=== PATIENT | female | born 1975 | race Hispanic/Latino ===

== ENCOUNTER 2017-09-14 12:05 | Outpatient (CLI) | payer BC | END 2017-09-14 12:06 | disposition home or self-care (01) | LOC: BICMAMMO 12:05 | PROVIDERS: ATTEND Physician Assistant | DX: N64.52 Nipple discharge (principal); R92.1 Mammographic calcification found on diagnostic imaging of breast | CPT/HCPCS: 77066; G0279 ==

== ENCOUNTER 2021-06-28 14:15 | Outpatient (CLI) | payer BC | END 2021-06-28 14:16 | disposition home or self-care (01) | LOC: ULT 14:15 | PROVIDERS: ATTEND Family Medicine | DX: R01.1 Cardiac murmur, unspecified (principal); I08.1 Rheumatic disorders of both mitral and tricuspid valves | CPT/HCPCS: 93306 ==

== ENCOUNTER 2021-07-04 14:28 | Outpatient (CLI) | payer BC | END 2021-07-04 14:29 | disposition home or self-care (01) | LOC: BICMAMMO 14:28 | PROVIDERS: ATTEND Family Medicine | DX: Z12.31 Encounter for screening mammogram for malignant neoplasm of breast (principal) | CPT/HCPCS: 77063; 77067 ==

== ENCOUNTER 2021-12-18 14:02 | Outpatient (CLI) | payer BC ==
[~2021-12-18 14:02] MED LIST: Magnevist 469MG/ML 20 ML VIAL ONE
== END 2021-12-18 14:03 | disposition home or self-care (01) ==
LOC: MRI 14:02
PROVIDERS: ATTEND Psychiatry & Neurology Neurology
DX: D35.2 Benign neoplasm of pituitary gland (principal); E23.6 Other disorders of pituitary gland
CPT/HCPCS: 70553; A9579

== ENCOUNTER 2022-09-26 09:57 | Outpatient (CLI) | payer BC | END 2022-09-26 09:58 | disposition home or self-care (01) | LOC: BICMAMMO 09:57 | PROVIDERS: ATTEND Family Medicine | DX: Z12.31 Encounter for screening mammogram for malignant neoplasm of breast (principal) | CPT/HCPCS: 77063; 77067 ==

== ENCOUNTER 2023-04-16 11:53 | Outpatient (CLI) | payer BC | END 2023-04-16 11:54 | disposition home or self-care (01) | LOC: SCSMRI 11:53 | PROVIDERS: ATTEND Psychiatry & Neurology Neurology | DX: E23.6 Other disorders of pituitary gland (principal) | CPT/HCPCS: 70553 ==